=== PATIENT | male | born 1945 | race Caucasian/White ===

== ENCOUNTER 2017-04-11 11:05 | Observation (INO) ==
[2017-04-11] MEDS ORDERED: LR 1,000 ML ONE (11:32)
[2017-04-11] MEDS ORDERED: DIPRIVAN 1% ONE ×2 (14:33→15:32)
[2017-04-11] MEDS ORDERED: EPHEDRINE ONE (15:27)
[2017-04-11] MEDS ORDERED: NEO-SYNEPHRINE ONE (15:27)
[2017-04-11] MEDS ORDERED: PROTONIX 80 MG in NS 80 ML IV ONE (16:45)
[2017-04-11] MEDS: NS 1,000 ML IV SCH (16:47)
[2017-04-11 17:13] LABS: MANUAL DIFF NEEDED? NO
[2017-04-11 17:17] LABS: BASO% 0.2 % (0.0-0.8); EOS# 0.14 X1000 (0.0-0.7); EOS% 1.7 % (0.0-10.0); HEMATOCRIT 33.3 % (42.0-52.0); HEMOGLOBIN 11.6 g/dL (14.0-18.0); LYMPH# 1.89 X1000 (1.2-3.4); LYMPH% 22.5 % (20.5-51.1); MCH 28.9 PG (27-31); MCHC 34.8 g/dL (33-37); MONO# 0.75 X1000 (0.11-0.59); MONO% 8.9 % (1.7-9.3); MPV 9.6 FL (7.4-10.4); NEUT% 66.7 % (42.2-75.2); PLT 276 X1000 (130-400); RBC 4.01 XMIL (4.7-6.1)
[2017-04-11 17:25] LABS: INR 1.08; PROTIME 11.4 Seconds (9.2-11.7); PTT 26.4 Seconds (22.0-36.0)
[2017-04-11 17:46] LABS: ALBUMIN 3.6 g/dL (3.5-5.0); CALCIUM 8.7 mg/dL (8.8-10.2); POTASSIUM 3.8 mmol/L (3.5-5.1); TOTAL BILIRUBIN 0.56 mg/dL (0.20-1.00); TOTAL PROTEIN 6.6 g/dL (6.3-8.3)
[2017-04-11] MEDS: PROTONIX 80 MG in NS 80 ML IV SCH (17:55)
--- NOTE | 2017-04-11 18:26 | HISTORY AND PHYSICAL ---
BEADING MACHINE OPERATOR: Mikaela Luna MD. CHIEF COMPLAINT: Dysphagia and large esophageal mass found on endoscopy. HISTORY OF PRESENT ILLNESS: Mr. Maurice is a 72-year-old, male with a history of hypertension who presents directly from the endoscopy suite for large bleeding esophageal mass found by Dr. Luna during EGD. The patient had been complaining of some difficulty swallowing over the past few weeks and Dr. Luna subsequently performed an upper endoscopy which revealed a large bleeding esophageal mass. Biopsies were taken and the patient was admitted to our service. He denies any other complaints, no weight loss, no hematemesis, no melena or hematochezia. Denies any abdominal pain, chest pain, shortness of breath, fever or chills. We are currently awaiting labs and diagnostics, Dr. Luna has already ordered a Protonix drip along with fluids, CT scan, surgical and HEM/ONC consultation. He is now going to be admitted for further treatment and evaluation. PAST MEDICAL HISTORY: 1. Hypertension. 2. Osteoarthritis. 3. Tachycardia on Cardizem, denies history of atrial fibrillation. PAST SURGICAL HISTORY: He had cataract surgery. SOCIAL HISTORY: He has no history of tobacco, alcohol or drug use. He works for the [employer]. He is . His is at the bedside. It should be noted that his also has a history of neck cancer. He is originally from [place], [place]. He states that 3 other close family and friends had neck cancer without a history of smoking as well. He denies any work with chemicals or chemical exposure. FAMILY HISTORY: Father from colon cancer. Mother from Buerger's disease. REVIEW OF SYSTEMS: A 14 point review of systems was obtained and found to be negative with the exception of the HPI. HOME MEDICATIONS: Celebrex 200 mg daily, dicyclomine 20 mg 4 times a day, Cardizem 60 mg b.i.d., Crestor 20 mg daily, Micardis 80/25, 1 daily. ALLERGIES: No known drug allergies. PHYSICAL EXAMINATION: VITAL SIGNS: Blood pressure 133/68, heart rate 97, respiratory rate 18, O2 saturation 97% on room air, temperature is 99 degrees. GENERAL: A well-developed, slightly overweight, male, lying in a hospital bed in no acute distress. NEUROLOGIC: The patient is awake, alert, and oriented. No focal deficits. HEENT: Head is atraumatic and normocephalic. His pupils are equal, round, reactive to light. Oral mucosa is moist. Trachea is midline. There is no JVD. CHEST: Clear to auscultation bilaterally. CARDIOVASCULAR: Regular rate and rhythm. S1-S2 is noted. No murmurs. GASTROINTESTINAL: Soft, nondistended, nontender. Bowel sounds positive. EXTREMITIES: Without edema, clubbing or cyanosis. Pulses palpable bilaterally. DIAGNOSTIC DATA: Pending. ASSESSMENT/PLAN: 1. Bleeding esophageal mass: Dr. Luna ordered a CT of the chest, abdomen and pelvis, started Protonix drip and ordered labs. She has also consulted Surgery and HEM/ONC. We will follow up on labs as soon as they have resulted. 2. Hypertension: We are going to hold off on Micardis for now until his labs have resulted to establish his renal function as he has been having some upper gastrointestinal bleeding. 3. Upper gastrointestinal bleed: Please see #1. Protonix drip has been started along with Carafate. 4. Deep vein thrombosis prophylaxis. Provide with SCDs/TEDs given his upper gastrointestinal bleeding. 5. Further recommendations to follow. Dictated by SCHUYLER Harvey for Tristen Muñoz MD cc: SCHUYLER Harvey MD
--- NOTE | 2017-04-11 20:09 | Diag Imaging Result Doc PS360 ---
THORAX/ABDOMEN/PELVIS - 04/11/2017 INDICATION: esophageal mass/GI bleed TECHNIQUE: A CT dose reduction protocol was used. COMPARISON: None FINDINGS: CHEST: There is some linear atelectasis or scarring in the lung bases. No infiltrates. Airways are grossly clear. Abdomen pelvis: There is a large irregular malignant circumferential mass at the gastroesophageal junction. The wall thickness measures about 3.2 cm maximally. In total dimensions the mass measures about 6.4 x 5.5 cm in AP and lateral dimensions. This involves the proximal stomach as well. Calcified gallstone in the gallbladder. The remainder of the bowel is grossly normal. Urinary bladder and rectum are normal. There are moderate degenerative changes of the spine. No acute or suspicious bony lesion. IMPRESSION: Large malignant mass at the gastroesophageal junction. A few small surrounding lymph nodes at the origin of the celiac axis are likely involved as well. Electronically signed by Nigel Huffman 04/11/2017 8:06 PM
[2017-04-11] MEDS: CARAFATE LIQUID PO SCH (20:48)
--- NOTE | 2017-04-11 22:22 | CONSULTATION ---
DATE OF CONSULTATION: 04/11/2017 REFERRING PHYSICIAN: Liliana Jasso M.D. in [place], [place]. PRIMARY HOSPITALIST: Dr. Tristen Minor M.D. INDICATION FOR CONSULTATION: 1. Dysphagia. 2. Esophageal mass found on endoscopy. 3. Unplanned weight loss. 4. Family history of colon cancer in his father. HISTORY OF PRESENT ILLNESS: The patient is a 72-year-old white male whose is followed in our clinic. He presented to the [facility] today for an EGD and colonoscopy. He reports a 1 month history of dysphagia. His became increasingly concerned because he has lost approximately 18 pounds in the last 4-6 weeks. He notes intermittent dysphagia to pills and meat as well as dry foods. He had no other symptoms. He was undergoing a colonoscopy to screen for colon polyps as he has a history of colon polyps and his father had colon cancer. He reports regular bowel movements that are brown in color. He has no other symptoms. On EGD, he was found to have a large infiltrative mass in the mid esophagus extending to the cardia of the stomach. He was also found to have approximately 200-300 mL of blood and bloody exudate as well as coffee- ground in the stomach consistent with an active GI bleed. Multiple biopsies were taken and in the distal esophagus was brushed. The appearance is most consistent with malignancy. He is being admitted for further evaluation. Dr. Lee Ann Christopher from Hematology/Oncology and Dr. Brady Kat from Surgery have been contacted. PAST MEDICAL HISTORY: 1. Hypertension. 2. Osteoarthritis. 3. Unexplained tachycardia. 4. History of colon polyps. 5. Family history of colon cancer. 6. Overweight. 7. Fatigue. PAST SURGICAL HISTORY: Bilateral cataract surgery. SOCIAL HISTORY: Negative for alcohol, tobacco or recreational drug use. He works for the [employer]. He is and his is one of our clinic patients. FAMILY HISTORY: Remarkable in that his father from colon cancer. His mother from Buerger's disease. He notes that at least 3 family members and friends from [place], [place] have had head and neck cancer with no prior smoking history. He denies exposure to chemicals or the use of chemicals. He and his tend to follow an organic eating plan and use natural vitamins. REVIEW OF SYSTEMS: Remarkable for the dysphagia, weight loss and fatigue. MEDICATION ALLERGIES: None. HOME MEDICATIONS: 1. Celebrex. 2. Cardizem. 3. Crestor. 4. Micardis. 5. Although doxycycline is listed as one of his medications, the patient denies taking it. PHYSICAL EXAMINATION: General: On exam, he is in no acute distress. Vital Signs: His blood pressure is 133/68, pulse 97, respiration 18, temperature of 99 degrees. HEENT : Unremarkable. Pulmonary: Lungs are clear to auscultation with normal expiratory effort. Cardiovascular: Reveals regular rate and rhythm with no gallops or rubs. Abdominal: Reveals normoactive bowel sounds. The abdomen is soft, nontender, with no rebound or guarding. There is mild central adiposity. Extremities: Bilaterally are negative for cyanosis, clubbing, or edema. OBJECTIVE DATA: Reveals a hemoglobin of 11.6 with hematocrit of 33.3, and a white count of 8.39. He has 276,000 platelets. His PT is 11.4 with an INR of 1.08 and a PTT of 26.4. CEA is 3.1. Sodium is 135, potassium 3.8, chloride 94, CO2 32, BUN 24, creatinine 1.4 with a glucose of 82. Calcium is 8.7, total bilirubin 0.56, AST 21, ALT 18, alkaline phosphatase 131, total protein 6.6, and albumin 3.6. IMPRESSION: 1. Large esophageal mass with involvement of the cardia. 2. Iron deficiency anemia. 3. Acute GI bleeding with hemostasis post EGD. 4. Family history of colon cancer. 5. Personal history of colon polyps. RECOMMENDATION: 1. We have ordered a CT scan of the chest, abdomen, and pelvis for staging. 2. Dr. Lee Ann Crhistopher has been consulted for further treatment options. 3. Dr. Kat has been consulted for possible surgical intervention. 4. Pathology is aware of his endoscopic results and a garcia has been placed on the pathologic evaluation. Those results are pending. 5. Begin a Protonix drip given that he was actively bleeding upon insertion of the scope. 6. Begin Carafate 1 g p.o. 4 times a day for the next 12 weeks. 7. He may have a clear liquid tonight and a possible full liquid diet tomorrow as tolerated. 8. Additional recommendations to follow based on the results of his testing and his clinical course. cc: MD Tristen Bender MD Barbara Kopyta, MD MTDD
--- NOTE | 2017-04-11 22:29 | OPERATIVE NOTE ---
PROCEDURE DATE: 04/11/2017 REFERRING PHYSICIAN: Liliana Jasso M.D., [place], [place] PRIMARY HOSPITALIST: Tristen Minor M.D. INDICATION FOR PROCEDURE: 1. Dysphagia. 2. Unplanned weight loss of 18 pounds. 3. Personal history of colon polyps. 4. Family History of colon cancer in his father. PROCEDURE PERFORMED: 1. Esophagogastroduodenoscopy with biopsy. 2. Esophagogastroduodenoscopy with esophageal brushings. 3. Planned colonoscopy was canceled due to poor bowel prep. CONSENT: Informed consent was obtained from the patient prior to the procedure. The risks, benefits, and alternatives were discussed. MEDICATIONS: The patient received monitored anesthesia care. PERFORMING PHYSICIAN: Mikaela Luna M.D. ASSISTANTS: 1. [facility] 2. Nadiya Lombardo RN. 3. Dell Russell CRNA. 4. Mario Box M.D. (Anesthesia). COMPLICATIONS: There were no complications. ESTIMATED BLOOD LOSS: There were approximately 2-3 mL of blood loss related to the biopsies and brushings. There was over 200 mL of blood and coffee-ground material evacuated from the gastric lumen upon insertion of the scope. SPECIMENS REMOVED: 1. Biopsy of an esophageal mass. 2. Esophageal brushings. FINDINGS: After sedation was achieved, the upper endoscope was inserted to the 2nd portion of the duodenum. The hypopharynx appeared endoscopically normal. The tubular esophagus was normal in the upper esophagus. In the mid esophagus, there was a large ulcerated cratered mass with a necrotic center and active bleeding. The mass began at 35 cm and extended to 42 cm. The GE junction was barely visible at 42 cm. The mucosa was irregular, heaped up and ulcerated. There was active oozing from the mass as well as from the distal esophagus. The mass continued into the proximal stomach and engulfed the upper portion of the stomach and the cardia. There was active oozing from the mass on the cardia surface. Hemostasis was achieved during the procedure. In the gastric lumen, greater than 200 mL of blood and coffee-ground material was evacuated. There was active oozing from at least 10 places in the distal esophagus and upper stomach. After water flushes and careful monitoring, hemostasis was achieved. After evacuation of the gastric material, the gastric mucosa appeared erythematous with scattered erosions consistent with erosive gastritis. There were no large masses or polyps seen. The pylorus was patent. There was no evidence of duodenitis with a normal 1st and 2nd portion of the duodenum. The ampulla of Vater appeared normal. After the exam was complete, the lumen was decompressed and the scope was retracted into the distal esophagus. Biopsies were taken and the esophageal ulcer was brushed. The lumen was then decompressed and the scope was removed without incident. IMPRESSION: 1. I recommend admission to [facility] given his active bleeding. Please monitor his blood count and pressure. 2. Begin Protonix drip. 3. Begin Carafate 1 g p.o. 4 times a day. 4. Please obtain an urgent chest, abdomen and pelvis CT scan with contrast. 5. Please consult Dr. Brady Kat and Dr. Lee Ann Christopher for assistance in his care. I have spoken to both this evening. 6. We will await biopsy results. I spoke with Dr. Shine Daily and will make arrangements for the specimen to be evaluated as soon as possible. 7. The patient had a poor bowel prep. His colonoscopy was canceled, especially in light of the findings in the upper stomach. I will plan to reschedule his procedure as an outpatient depending on his evaluation and clinical course. 8. Please monitor serial hemoglobin and hematocrit. 9. His laboratory order has been written. 10. Additional recommendations to follow based on his clinical course and the results of his evaluation. cc: MD Tristen Bender MD Barbara Kopyta, MD MTDD
[2017-04-12] MEDS: CARAFATE LIQUID PO SCH ×2 (02:46→08:18)
[2017-04-12 05:01] LABS: HEMATOCRIT 33.3 % (42.0-52.0); HEMOGLOBIN 11.5 g/dL (14.0-18.0); MCH 28.6 PG (27-31); MCHC 34.5 g/dL (33-37); MCV 82.8 FL (81-99); MPV 9.3 FL (7.4-10.4); RBC 4.02 XMIL (4.7-6.1)
[2017-04-12] MEDS: PROTONIX 80 MG in NS 80 ML IV SCH ×2 (05:06→12:39)
[2017-04-12 05:09] LABS: RETIC% 0.68 % (0.8-2.1); RETIC-HE 31.2 PG (28.2-36.6)
[2017-04-12 05:31] LABS: IRON SATURATION 15 %; TIBC 270 ug/dL; TOTAL IRON 41 ug/dL (53-167); UNBOUND IRON 229 ug/dL (112-346)
[2017-04-12 05:32] LABS: POTASSIUM 3.9 mmol/L (3.5-5.1)
--- NOTE | 2017-04-12 06:27 | CONSULTATION ---
DATE OF CONSULTATION: 04/12/2017 REQUESTING PHYSICIAN: Dr. Luna. REASON FOR CONSULTATION: Large esophageal mass concerning for cancer. HISTORY OF PRESENT ILLNESS: A 72-year-old male with a history of hypertension, who is seen by Dr. Luna for some dysphagia and weight loss. He underwent endoscopy done by Dr. Luna yesterday which showed esophageal mass which was biopsied. He then was admitted. He had a CT scan that showed concern for this being an esophageal cancer with some prominent lymph nodes at the celiac axis concerning for involvement of the lymph nodes. He was admitted and started on a proton pump inhibitor drip. He currently denies any abdominal pain, chest pain , or shortness of breath but again he had some dysphagia. Given this esophageal mass, I was asked to evaluate the patient. I did discuss this case over the phone with Dr. Luna. PAST MEDICAL HISTORY: 1. Hypertension. 2. Osteoarthritis. 3. Tachycardia on Cardizem. PAST SURGICAL HISTORY: Includes cataract surgery. SOCIAL HISTORY: No history of tobacco, alcohol or illicit drugs. FAMILY HISTORY: Colon cancer. Baker's disease. HOME MEDICATIONS: 1. Celebrex. 2. Dicyclomine. 3. Cardizem. 4. Crestor. 5. Micardis. ALLERGIES: None. REVIEW OF SYSTEMS: A full 10 point review of systems obtained and negative as specified in HPI. PHYSICAL EXAMINATION: Vital Signs: Patient is currently afebrile. His vital signs are stable. General: No acute distress. Well-nourished and well-developed male looks stated age. HEENT: Normocephalic, atraumatic. Pupils equal, round, react to light. Mucous membranes moist. Oropharynx benign. Neck: Supple. Trachea midline. Cardiovascular: Regular rate and rhythm. Lungs: Grossly clear. Abdomen: Soft, nontender, and nondistended. Extremities: Moves all extremities. Neurologic: Grossly intact. Skin: No signs of jaundice. Vascular: All extremities perfused. LABORATORY: Reviewed with hematocrit of 33. Remainder of labs reviewed. CT scan independently reviewed and radiology report reviewed. Patient does have what looks like an esophageal mass at the gastroesophageal junction. There appears to be some prominent lymph nodes to suggest an involvement of the celiac axis. ASSESSMENT AND PLAN: A 72-year-old male with esophageal mass. 1. Esophageal mass at this time. Official biopsy results are pending but this is a high degree of suspicion this is a cancer. On the CT scan, this also shows potential for lymphadenopathy. Patient may benefit from a PET scan to evaluate if these are actually metabolically active. I am concerned that they are and this may represent the need for neoadjuvant chemotherapy. Hem/Onc has been consulted with Dr. Christopher. I will discuss the case with her and will go with a multi-disciplinary approach. This also looks almost essentially fully circumferential which also would merit the potential for neoadjuvant therapy. The patient does not have complete obstruction at this time from this cancer but he is having some degree of dysphagia so we may need to monitor how he is able to tolerate taking in nutrition. 2. Hypertension being managed by the hospitalist service. cc: MD Tristen Lowery MD MTDD
[2017-04-12] MEDS: NS 1,000 ML IV SCH (06:32)
[2017-04-12 11:36] VITALS: BP 124/71
--- NOTE | 2017-04-12 15:47 | CONSULTATION ---
DATE OF CONSULTATION: 04/12/2017 REQUESTING PHYSICIAN: Dr. Luna REASON FOR CONSULTATION: Esophageal mass. HISTORY OF PRESENT ILLNESS: Mr. Maurice is a pleasant 72-year-old, male who was admitted after an esophageal mass was found by Dr. Luna during an EGD. The history is that the patient was complaining of difficulty swallowing as well as having some weight loss over several months. He then underwent this EGD and the mass was found. Biopsies have been taken. We have been requested to see the patient as he will need treatment. The patient currently has no acute complaints. He denies any fevers or chills. PAST MEDICAL HISTORY: 1. Hypertension. 2. Osteoarthritis. 3. Tachycardia. PAST SURGICAL HISTORY: Cataract surgery. SOCIAL HISTORY: Patient denies any history of tobacco, alcohol or drug use. He is and lives with his . He denies any chemical exposure during his work. He works for the [employer]. FAMILY HISTORY: Father from colon cancer. His mother disease from Buerger's disease. He also has some sort of close family members that had head and neck cancer as well. REVIEW OF SYSTEMS: Twelve point review of systems has been completed and is negative except for what was found in the HPI. PHYSICAL EXAMINATION: Vital Signs: Temperature is 98.4 degrees, heart rate 93 , respirations 20, blood pressure 137/69, O2 saturations 100% on room air. General: This is a male who is sitting in a hospital chair. He looks well. He is in no acute distress. HEENT : Head normocephalic, atraumatic. Pupils equal, round, reactive. Ears, nose, throat, nose, and mouth. Neck is supple. Oral mucosa appears to be normal. Gross auditory acuity is intact. Cardiovascular: S1-S2 heard without any murmurs, gallops, or rubs appreciated. Respiratory: Chest clear to auscultation bilaterally. Normal respiratory effort. Abdomen: Protuberant but not distended. Positive bowel sounds. No tenderness. Musculoskeletal: No obvious bony abnormalities noted. Extremities: Patient has no peripheral edema in bilateral lower extremities. Neurologic: Patient is alert and oriented x3 with no focal motor deficits noted. LABS AND STUDIES: White blood cells 6.92, hemoglobin 11.5, hematocrit 33.3, platelets 268,000. Sodium 138, potassium 3.9, chloride 97, CO2 27, BUN 20, creatinine 1.3, glucose 114, iron 41, TIBC 270 saturation percent 15, ferritin 74. B12 greater than 2000. Folate 26.8. CT of chest, abdomen, and pelvis done on 04/11/2017 shows a large malignant mass at the gastroesophageal junction. A few small surrounding lymph nodes at the origin of the celiac region are likely involved as well. Surgical path has come back as adenocarcinoma moderately to poorly differentiated with superficial ulceration. ASSESSMENT AND PLAN: 1. Gastroesophageal adenocarcinoma. CEA has been ordered but is currently pending. CT of chest, abdomen and pelvis and path as per above. We discussed with the patient that he can meet up with us in the office. We will need to do an outpatient PET scan and discuss further treatment at that time. The patient has also already seen General surgery. It is felt that he will likely need some neoadjuvant treatment. Plan has also been reviewed with the patient's . 2. Hypertension. Overall well controlled. He will continue current management. 3. Upper gastrointestinal bleed. He is status post EGD. He has been started on PPI as well as Carafate. He also has the GE junction mass that will need to be treated as per above. 4. Iron deficiency. Mild. The patient's hemoglobin is stable. This could be corrected as an outpatient with iron repletion as needed. We want to thank you for consulting us on Mr. Maurice. We will continue to follow along and adjust our treatment plan per his hospital course. Dictated by ALBINA Call for Lee Ann Christopher MD cc: MD Tristen Verdin MD I have seen and examined the patient and agree with the above A/P. Lee Ann Christopher MD MTDD
[2017-04-12] MEDS ORDERED: CARAFATE PO SCH (17:00)
--- NOTE | 2017-04-12 19:33 | DISCHARGE SUMMARY ---
ADMISSION DATE: 04/11/2017 DISCHARGE DATE: 04/12/2017 CONSULTATIONS: 1. Mikaela Luna MD with Gastroenterology. 2. Brady Kat MD with General Surgery. PERTINENT PROCEDURES: 1. Chest, abdomen and pelvis CT showed a large malignant mass at the gastroesophageal junction, a few small surrounding lymph nodes at the origin of the celiac axis likely involved as well. 2. EGD with biopsy and esophageal brushings. Planned colonoscopy but cancelled due to poor bowel prep performed by Dr. Luna. Concerning for cancer. Initial biopsy results are pending. Degree of suspicion that it is cancer. 3. CT shows potential for lymphadenopathy. The patient has been set up to follow up with Dr. Christopher next week to discuss pathology report and possible treatment from their. DISCHARGE DIAGNOSES: 1. Upper GI bleed. The patient had been on a Protonix drip as well as Carafate and undergone EGD by Dr. Luna. She did find active oozing from the mass on the cardia surface. Hemostasis was achieved during the procedure. There was also active oozing from at least 10 places in the distal esophagus and upper stomach. Hemostasis was also achieved there. Patient's hemoglobin and hematocrit has remained stable. Hemodynamically he has remained stable. 2. Hypertension stable. HOSPITAL COURSE: Mr. Maurice is a 72-year-old, male with a history of hypertension who presented directly from Endoscopy Suite for a large bleeding esophageal mass found by Dr. Luna during EGD. The patient had been complaining of some difficulty swallowing over the last few weeks. Dr. Luna subsequently performed an EGD which revealed a large bleeding esophageal mass. Biopsies were taken. The patient was admitted to our service. He was initiated on a Protonix drip, fluids, Carafate, CT scan of the chest, abdomen and pelvis as well as surgical and Hem/Onc consultation. The patient has remained stable overnight. His hemoglobin and hematocrit has remained the same. Vital signs have remained stable. He is to follow up with Dr. Christopher next week to discuss the pathology report as well as follow up with Dr. Luna in the next 2-[address] Minor feels he is appropriate for discharge today. VITAL SIGNS ON DISCHARGE: Temperature is 98.9 degrees, heart rate 90, respirations 20, blood pressure is 124/71, O2 is 98% on room air. DISCHARGE DIET: Full liquid. DISCHARGE MEDICATIONS: 1. Dicyclomine hydrochloride 20 mg p.o. 4 times a day. 2. Cardizem 60 mg p.o. b.i.d. 3. Prilosec 40 mg p.o. b.i.d. 4. Crestor 40 mg p.o. daily. 5. Carafate 1 g p.o. 4 times a day. 6. Micardis/HCT 80/25, 1 each p.o. daily. DISPOSITION: Mr. Maurice is being discharged home. FOLLOWUP: 1. He will follow up with Dr. Christopher next week for his pathology report. 2. He will follow up with Dr. Luna in the next 2-3 weeks. 3. He can return to the ED for any worsening of symptoms. DISCHARGE TIME: 30 minutes. Dictated by SCHUYLER Hope for Tristen Muñoz MD cc: Tristen Muñoz MD MTDD
[2017-04-12] MEDS ORDERED: PRILOSEC PO SCH (21:00)
[2017-04-14] MEDS ORDERED: PROTONIX IV SCH (17:00)
== END 2017-04-12 02:10 | disposition home or self-care (01) ==
LOC: OR 11:05 → SURHOLD 11:05 → SUATTDRO 15:51 → 3S 16:43
PROVIDERS: ADMIT Internal Medicine; ATTEND Internal Medicine